=== PATIENT | female | born 1970 | race Caucasian/White ===

== ENCOUNTER → 2021-08-09 | Outpatient (CLI) | payer OTHER ==
[~2021-08-09] MED LIST: AMBIEN10 MG PO; CETIRIZINE10 MG PO; CIPRO250 MG PO; CYCLOBENZAPRINE5 M3 PO; DAYPRO600 M1 PO; DICYCLOMINE10 MG PO; ELMIRON100 MG PO; FLEXERIL5 MG PO; FLONASE0.05 MG/AC; HYDROCODONE BIT1 T11 PO; IBUPROFEN 30 M800 MG PO; IMITREX; KAOPECTATE262 MG PO; MOTRIN600 MG PO; MOTRIN800 MG PO; Motrin,Rufen800 MG PO; NAPROSYN500 MG PO; NEURONTIN300 MG PO; NEURONTIN400 MG PO; OMEPRAZOLE D/R20 MG PO; PERCOCET 325 MG1 TA2 PO; PERCOCET 325 MG1 TA7 PO; ROBAXIN750 MG PO; TRAMADOL50 MG PO; VICO75300 PO; VICODIN ES 7501 TAB PO; XANAX0.25 MG PO; ZANAFLEX4 MG PO; ZYRTEC5 M1 PO
== END | disposition home or self-care (01) ==
LOC: RAD 10:19
PROVIDERS: ATTEND Nurse Practitioner Family
DX: J98.11 Atelectasis (principal)

== ENCOUNTER → 2024-03-13 | Outpatient (CLI) | payer OTHER ==
[2024-03-13 09:36] LABS: BASO # 0.1 10*3/uL (0.0-0.1); BASO % 0.5 % (0.0-1.0); EOS % 0.2 % (1.0-4.0); HEMATOCRIT 40.2 % (37.0-47.0); MEAN CELL VOLUME 91.2 fl (81.0-99.0); MEAN CORPUSCULAR HGB 27.2 pg (27.0-31.0); MEAN CORPUSCULAR HGB CONC 29.9 g/dl (33.0-37.0); MEAN PLATELET VOLUME 9.4 fl (9.6-12.3); MONO # 0.7 10*3/uL (0.1-1.0); MONO % 6.2 % (3.0-9.0); NEUT # 8.4 10*3/uL (2.3-7.9); NEUT % 76.2 % (47.0-73.0); PLATELET COUNT AUTOMATED 308 10*3/uL (130-400); RED BLOOD COUNT 4.41 10*6/uL (4.10-5.10); RED CELL DISTRI WIDTH 16.5 % (0-14.5); RETICULOCYTE % 2.28 % (0.50-2.50); WHITE BLOOD COUNT 11.1 10*3/uL (4.8-10.8)
[2024-03-14 05:04] LABS: IMMUNOGLOBULIN G, QNT 628 mg/dL (586-1602); IMMUNOGLOBULIN M, QNT 90 mg/dL (26-217)
[2024-03-16 11:04] LABS: SJOGREN ANTI-SS-A <0.2 AI (0.0-0.9); SJOREN AB, ANTI-SS-B <0.2 AI (0.0-0.9)
[2024-03-16 16:05] LABS: A/G RATIO 1.4 (0.7-1.7); ALBUMIN 3.9 g/dL (2.9-4.4); ALPHA-1-GLOBULIN 0.3 g/dL (0.0-0.4); ALPHA-2-GLOBULIN 0.9 g/dL (0.4-1.0); BETA GLOBULIN 1.2 g/dL (0.7-1.3); GAMMA GLOBULIN 0.5 g/dL (0.4-1.8); GLOBULIN, TOTAL 2.8 g/dL (2.2-3.9); TOTAL PROTEIN, SERUM 6.7 g/dL (6.0-8.5)
[2024-03-16 17:03] LABS: ANGIOTENSIN-CONVERTING ENZYME 24 U/L (14-82)
[2024-03-17 14:05] LABS: IMMUNOGLOBULIN D, QNT <1.30 mg/dL (<14.11)
== END | disposition home or self-care (01) ==
LOC: LAB 09:04
PROVIDERS: ATTEND Nurse Practitioner Family
DX: Z79.899 Other long term (current) drug therapy (principal)